=== PATIENT | female | born 1955 | race Caucasian/White ===

== ENCOUNTER → 2024-04-01 10:00 | Outpatient (REF) | payer MEDICARE, OTHER, SELFPAY | LOC: RAD 10:00 | PROVIDERS: ATTENDING PHYSICIAN Optometrist; FAMILY PHYSICIAN Family Medicine | DX: G45.3 Amaurosis fugax (principal) | CPT/HCPCS: 93880 ==

== ENCOUNTER → 2024-04-02 11:26 | Outpatient (REF) | payer MEDICARE, OTHER, SELFPAY ==
[2024-04-02 12:12] LABS: % Basophils 0.8 % (0-2); % Eosinophils 7.4 % (0-6); % Immature Granulocytes 0.3 % (0-0.5); % Lymphocytes 26.2 % (20.5-51.1); % Neutrophils 57.3 % (42.2-75.2); Absolute Basophils 0.1 10^3/uL (0-0.2); Absolute Eosinophils 0.5 10^3/uL (0-0.7); Absolute Lymphocytes 1.9 10^3/uL (1.2-3.4); Absolute Monocytes 0.6 10^3/uL (0.1-0.6); Absolute Neutrophils 4.1 10^3/uL (1.4-6.5); Hematocrit 41.4 % (37.0-47.0); Hemoglobin 13.6 g/dL (12.0-16.0); Mean Corp Hgb Conc. 32.9 g/dL (33.0-37.0); Mean Corpuscular Hgb 28.4 pg (27.0-31.0); Mean Corpuscular Volume 86.4 fL (81.0-99.0); Mean Platelet Volume 9.6 fL (7.4-10.4); Nucleated Red Blood Cells % 0 %; Platelet Count 254 10^3/uL (130-400); Red Blood Cell Count 4.79 10^6/uL (4.20-5.40); Red Cell Dist. Width 14.1 % (11.5-14.5); White Blood Cell Count 7.2 10^3/uL (4.8-10.8)
[2024-04-02 12:50] LABS: Erythrocyte Sed Rate 22 mm/hour (0-20)
[2024-04-02 13:19] LABS: ALT (SGPT) 19 U/L (0-35); AST (SGOT) 25 U/L (14-36); Albumin 4.1 g/dl (3.5-5.0); Alkaline Phosphatase 156 U/L (38-126); Blood Urea Nitrogen 18 mg/dl (7-17); Calcium 9.3 mg/dl (8.4-10.2); Carbon Dioxide 29 mmol/L (22-30); Chloride 104 mmol/L (98-107); Glucose 88 mg/dl (70-99); HDL Cholesterol 95 mg/dl; LDL Cholesterol, Calculated 126 mg/dl; Potassium 4.6 mmol/L (3.5-5.1); Sodium 139 mmol/L (135-145); Total Bilirubin 0.7 mg/dl (0.2-1.3); Total Cholesterol 237 mg/dl (50-199); Total Protein 6.8 g/dl (6.3-8.2); Triglyceride 84 mg/dl (10-149); Very Low Density Lipoprotein 16 mg/dl (0-30); eGFR > 60.00
[2024-04-02 13:31] LABS: Vitamin D, 25-OH*** 26.3 ng/mL (30-80)
[2024-04-02 13:45] LABS: TSH Reflex To Free T4 1.67 uIU/ml (0.47-4.68)
== END ==
LOC: REG 11:26
PROVIDERS: ATTENDING PHYSICIAN Family Medicine
DX: E03.9 Hypothyroidism, unspecified (principal); E55.9 Vitamin D deficiency, unspecified; K80.50 Calculus of bile duct without cholangitis or cholecystitis without obstruction; Z13.1 Encounter for screening for diabetes mellitus; Z13.6 Encounter for screening for cardiovascular disorders; R53.83 Other fatigue; I65.21 Occlusion and stenosis of right carotid artery; H53.9 Unspecified visual disturbance
CPT/HCPCS: 36415; 80053; 80061; 82306; 84443; 85025; 85652

== ENCOUNTER → 2024-04-03 09:07 | Outpatient (REF) | payer MEDICARE, OTHER, SELFPAY | LOC: HWRAD 09:07 | PROVIDERS: ATTENDING PHYSICIAN Surgery Vascular Surgery; FAMILY PHYSICIAN Family Medicine | DX: I65.21 Occlusion and stenosis of right carotid artery (principal) | CPT/HCPCS: 70496; 70498; Q9967 ==

== ENCOUNTER 2024-04-14 08:56 | Inpatient (IN) | payer MEDICARE, OTHER, SELFPAY ==
[2024-04-08 09:38] VITALS: BMI 44.9
[2024-04-08 10:20] LABS: % Basophils 0.7 % (0-2); % Eosinophils 6.8 % (0-6); % Immature Granulocytes 0.3 % (0-0.5); % Lymphocytes 24.5 % (20.5-51.1); % Monocytes 7.7 % (1.7-9.3); Absolute Basophils 0.1 10^3/uL (0-0.2); Absolute Eosinophils 0.5 10^3/uL (0-0.7); Absolute Lymphocytes 1.8 10^3/uL (1.2-3.4); Absolute Monocytes 0.6 10^3/uL (0.1-0.6); Absolute Neutrophils 4.3 10^3/uL (1.4-6.5); Hemoglobin 14.4 g/dL (12.0-16.0); Mean Corp Hgb Conc. 33.5 g/dL (33.0-37.0); Mean Corpuscular Hgb 29.2 pg (27.0-31.0); Mean Corpuscular Volume 87.2 fL (81.0-99.0); Mean Platelet Volume 10.3 fL (7.4-10.4); Nucleated Red Blood Cells % 0 %; Platelet Count 243 10^3/uL (130-400); Red Blood Cell Count 4.93 10^6/uL (4.20-5.40); White Blood Cell Count 7.2 10^3/uL (4.8-10.8)
[2024-04-08 10:34] LABS: INR 1.01; PT 13.1 Sec (11.4-14.6)
[2024-04-08 10:35] LABS: APTT 33.7 Sec (23.4-35.0); Blood Urea Nitrogen 17 mg/dl (7-17); Calcium 9.4 mg/dl (8.4-10.2); Carbon Dioxide 25 mmol/L (22-30); Chloride 106 mmol/L (98-107); Estimated Creatinine Clearance 95 ml/min; Glucose 108 mg/dl (70-99); Sodium 140 mmol/L (135-145); eGFR > 60.00
[2024-04-14] VITALS (14 sets, daily range): BP systolic 90–129; BP diastolic 48–74; BMI 44.7
[2024-04-14] MEDS: BACTROBAN NASAL 1 GRAM NASAL (09:27)
[2024-04-14] MEDS: PERIDEX 0.12% ORAL RINSE 15 ML PO (09:27)
[2024-04-14] MEDS: NSS 500 IV ×2 (09:27→21:02)
--- NOTE | 2024-04-14 09:33 | W.SUR.PREOP ---
Pre-Operative Surgical Note
-
I have examined this patient prior to the performance of the scheduled procedure.
The patient's condition is unchanged from the time of the current History and
Physical and the patient is able to undergo the scheduled procedure.
--- NOTE | 2024-04-14 12:45 | CON.INTV ---
Consultation
Consultation Request
Date/Time Consultation Requested: 04/14/2024-1 PM
Date/Time Consultation Performed: 04/14/2024- PM
Requesting Provider: Dr. Bruno
Performing Provider: Dr. Hanks
Reason for Consultation: Postoperative critical care management
Medical History
-
Chief Complaint: Symptomatic right carotid stenosis
History of Present Illness:
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 Postoperatively patient had
complained of a headache, CT head negative, no complaints of shortness of breath, chest pain, chest tightness, productive cough, abdominal pain, nausea, leg swelling or weakness. She is unsure whether she snores, she does not sleep well, wakes up
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
Past Medical History
Past Medical History: None (Asthma. Whooping cough. Tonsillectomy. Left hip arthroplasty 2020. Bile duct obstruction. Upper back sebaceous cyst excision.)
Social History
Tobacco: Non-smoker
Drug: None
Living: With Family
Occupational Exposures: No known asbestos exposure
Environmental Exposures: No known tuberculosis exposure
Family History
Family History: Other (Father-dementia, CAD. Mother-ovarian cancer and asthma)
Allergies / Home Medications
Allergies
Allergy/AdvReac Type Severity Reaction Status Date / Time
No Known Allergies Allergy Verified 04/14/24 09:28
Home Medications
�Medication �Instructions �Recorded �Confirmed �Last Taken �Type
Acetaminophen With Codeine #3 1 tab PO .PRN PRN BACK pain 07/12/23 04/07/24 05/25/23 History
Nasacort 1 puff intranasal PRN PRN 07/12/23 07/12/23 04/11/24 18:00 History
congestion
Vitamin D3 2,000 units PO DAILY 07/12/23 04/14/24 04/13/24 16:00 History
lidocaine HCl 4 % topical liquid 1 ea topical PRN PRN back pain 07/12/23 04/07/24 07/10/23 History
roll-on (Aspercreme (lidocaine
HCl))
orphenadrine citrate 100 mg 100 mg PO BID BACK PAIN 07/12/23 04/14/24 04/24/23 History
tablet,extended release
aspirin 81 mg tablet,delayed 81 mg PO DAILY 04/07/24 04/14/24 04/14/24 08:00 History
release
clopidogrel 75 mg tablet 75 mg PO DAILY 04/07/24 04/14/24 04/14/24 08:00 History
rosuvastatin 10 mg tablet 10 mg PO HS 04/07/24 04/14/24 04/13/24 22:00 History
Liver Support With Milk Thistl 1 cap PO DAILY 04/14/24 04/14/24 Unknown History
albuterol sulfate 90 mcg/actuation 2 puff inhalation 6XD PRN ASTHMA 04/14/24 04/14/24 Unknown History
aerosol inhaler
budesonide-formoterol HFA 160 2 puff inhalation DAILY 04/14/24 04/14/24 04/14/24 08:00 History
mcg-4.5 mcg/actuation aerosol
inhaler (Symbicort)
Review of Systems
-
Unable to Obtain full review of systems at this time due to: Other (Per HPI)
Vitals / Labs / Diagnostic Testing
Vital Signs
Temp Pulse Resp BP Pulse Ox
97.1 F 76 14 129/70 97
04/14/24 09:09 04/14/24 09:30 04/14/24 09:30 04/14/24 09:29 04/14/24 09:30
Lab Data
04/08/24 10:01
04/08/24 10:01
Diagnostic Testing:
Physical Exam
-
Exam:
Well-nourished and well-developed in no apparent distress
HEENT-atraumatic, normocephalic
Neck-supple, no JVD, no bruit
Heart-regular rate and rhythm-no murmurs, rubs or gallops
Chest-clear to auscultation, no wheezes, crackles
Back-no tenderness
Abdomen-soft, nontender, nondistended, no hepatosplenomegaly
Extremities-no cyanosis, clubbing, edema and good peripheral pulses
Integument-intact, no rashes, lesions or ecchymosis
Neurology-alert and oriented, nonfocal motor and sensory exam
Assessment
-
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
Symptomatic right carotid artery stenosis
Status post right CEA-Dr. Bruno-04/14/2024
Postoperative headache on the right side-CT head negative, felt to be reperfusion headache-will monitor closely
Mild hyperglycemia
Conditions present prior to admission:
Asthma.
Whooping cough.
Tonsillectomy. Left hip arthroplasty 2020. Bile duct obstruction. Upper back sebaceous cyst excision.
Plan
Postoperative surgical intensive care unit monitoring
Supplemental oxygen as needed
Incentive spirometry
Aspiration precautions
Neuro and vascular checks per protocol
Monitor head/neck ache
CT head postoperatively-no acute intracranial abnormalities
Vascular surgery following-correspondence and operative notes reviewed
Monitor blood sugar
Insulin supplementation as needed
DVT prophylaxis
Early nutrition
Early mobilization
Critical care statement: A total of 46 minutes of critical care time was provided for this patient today. This includes management of unstable vital signs, evaluation of the patient at bedside, reviewing the patient's pertinent medical records
including radiographs, microbiology, laboratory evaluations, and discussion with primary team, consultants, pharmacy, nutrition, physical therapy, case management, charge nurse, critical care nursing, and respiratory therapy.
Diagnostic data:
Chest x-ray 04/08/2024-NAD
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
Data Reviewed
-
EKG: Report reviewed by me
Radiology: Report reviewed by me
CT Scan: Report reviewed by me
Medical Tests (Nuc Med, Echo etc): Report reviewed by me
Labs: Labs reviewed by me
Old Records: Reviewed
Critical Care Time (in minutes): 46
--- NOTE | 2024-04-14 12:59 | W.SUR.POST ---
Surgical Immediate Post Op
Note
Pre Op Diagnosis: Carotid stenosis
Post Op Diagnosis: Same
Procedure Performed: Right CEA with bovine pericardial patch angioplasty and EEG monitoring
Primary Surgeon: Damion
Assist: Heladio CHILDERS
Anesthesia: General
Estimated Blood Loss: 25 cc
Fluids: See anesthesia flowsheet
Drains/Shunts: None
Specimens/Cultures: Right carotid plaque
Doppler/Duplex/Angio (Y/N): Y
Complications: None
Operative Findings: Woke from anesthesia moving all extremities
[2024-04-14 13:49] LABS: Hemoglobin 13.4 g/dL (12.0-16.0); Mean Corp Hgb Conc. 34.4 g/dL (33.0-37.0); Mean Corpuscular Hgb 29.3 pg (27.0-31.0); Mean Corpuscular Volume 85.2 fL (81.0-99.0); Mean Platelet Volume 10.2 fL (7.4-10.4); Platelet Count 217 10^3/uL (130-400); Red Blood Cell Count 4.58 10^6/uL (4.20-5.40); Red Cell Dist. Width 13.9 % (11.5-14.5); White Blood Cell Count 10.4 10^3/uL (4.8-10.8)
[2024-04-14 13:57] LABS: Blood Urea Nitrogen 18 mg/dl (7-17); Calcium 8.6 mg/dl (8.4-10.2); Carbon Dioxide 23 mmol/L (22-30); Chloride 108 mmol/L (98-107); Estimated Creatinine Clearance 110 ml/min; Glucose 134 mg/dl (70-99); Sodium 139 mmol/L (135-145); eGFR > 60.00
[2024-04-14 13:59] LABS: INR 1.09; PT 13.9 Sec (11.4-14.6)
[2024-04-14 14:00] LABS: APTT 37.8 Sec (23.4-35.0)
--- NOTE | 2024-04-14 14:31 | PTCARENOTE ---
Received patient to room 3362, report given from PACU nurse Mauro. 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 still has pain in jaw, teeth and neck. Patient did come
directly from CT scan. Patient is on 4L nasal cannula. Patient is sinus rhythm on monitor. Left radial Radha intact, transduced and zero'ed to atmopheric pressure. currently 130/67. Right neck skin glue incision, intact, ecchymotic, ice pack
applied. Patient is due to void. slightly nauseated. Will review orders, call [facility] within reach.
[2024-04-14] MEDS: ZOFRAN 4 MG IV (14:45)
[2024-04-14] MEDS: MORPHINE SULFATE 2 MG IV (14:45)
[2024-04-14] MEDS: NSS 1000 IV (14:48)
--- NOTE | 2024-04-14 14:51 | SUR.PHASEI ---
1310: Pt. was endosing to RN 7-8 out of 10 right sided neck, eye and head pain (headache). Pt. neurologically intact despite symptoms with sensation and strength equal throughout. with facial symmetry. Pt. AAOx3 and answering all questions
appropriately. Pt. covering Radha Mathews was contacted and made aware of pt. current condition. Nicardipine gtt. that was running at 7.5 was stopped due to SBP ranging 100-110.
1340: MD Rodriguez at bedside assessing patient. request to head straight to CT scan for the head due to change in patient condition.
1410: Pt. packed up and was safely transported to CT scan and was taken directly to ICU room, patient arrived to room safely with no events.
1425: RN to RN report given after patient was settled in room
[2024-04-14 15:30] LABS: Troponin I < 0.012 ng/ml
[2024-04-14] MEDS: HEPARIN 5000 UNITS SC (15:36)
[2024-04-14] MEDS: DILAUDID 0.25 MG IV ×2 (15:36→18:35)
--- NOTE | 2024-04-14 15:44 | OR.RPT ---
Operative Report
Operative Report
PROCEDURE DATE: 04/14/2024
Preoperative diagnosis: Symptomatic critical right carotid artery stenosis.
Postoperative diagnosis: Same
Procedure: Right carotid endarterectomy with bovine pericardial patch angioplasty and intraoperative EEG/SSEP monitoring.
Surgeon: Damion
Manager Sales: LISA Leija required for all aspects of procedure including assistance with traction/countertraction, following of suture line, assistance with closure.
Complications: None
Anesthesia: General
Indications for procedure:
Symptomatic (amaurosis) right carotid artery critical stenosis. Risk/benefits/alternatives of revascularization were all fully discussed. Patient understood all wish to proceed.
Description of procedure:
Patient was identified brought to the operating room placed on the table in supine position. After the adequate administration of anesthesia and perioperative antibiotics she was prepped and draped in the standard surgical fashion. A standard
preoperative timeout was undertaken and everybody was in agreement the plan. A standard longitudinal incision was made in the right neck that was carried through the skin subcutaneous tissue. Using the electrocautery dissection was carried through
the platysma muscle layer and then alongside the anterior medial border of the sternocleidomastoid muscle. Then using a combination of sharp dissection with the Metzenbaum scissors and electrocautery I dissected along the anterior medial border of
the internal jugular vein. The common facial vein branch was ligated between silk ties and then divided. I then deepened my retraction. The common carotid artery was identified and carefully dissected away from the surrounding structures take
great care to avoid any injury to the structures. A vessel loop was passed around it which was double looped, but not yet tightened. Note the vagus nerve was clearly visualized and protected from harm's way. I then continued my dissection up the
common carotid artery to the bulb staying only on the anterior surface of the carotid artery. Then I carried the dissection up to the internal carotid artery and then to the distal internal carotid artery. I identified where it was soft, which was
rather far cephalad. Therefore, I did extend my incision slightly more cephalad, and there was an additional jugular vein branch that was ligated between silk ties and then divided to allow better exposure. Once I had better exposure, I carefully
circumferentially dissected the internal carotid artery with minimal mobilization and passed a vessel loop around it. Note the hypoglossal nerve was visualized and preserved from harm's way, it was noted to be further cephalad. The patient was
given an appropriate dose of heparin 11,000 units. Next I dissected the anterior surface of the external carotid artery and superior thyroid branches. These were then carefully circumferentially dissected with minimal mobilization and vessel
loops passed around these which were double looped but not yet tightened. After 3 minutes of heparin circulation time and confirmation of optimization of the blood pressure with my anesthesiology colleagues, I clamped the distal internal carotid
artery where it was soft. There was no immediate EEG or SSEP changes. After 1 minute of test clamp time there was no changes noted. Therefore at this point, the vessel loops on the external carotid artery and superior thyroid branches were
tightened and the common carotid artery was clamped where it was soft proximally. An arteriotomy was made on the common carotid artery with an 11 blade and extended using a Aldana scissor. I extended the arteriotomy onto the mid to distal internal
carotid artery. A heavy plaque of mixed consistency with significant calcification/hardness eccentrically and slightly softer internal aspect was noted, and was noted to cause significant diameter reduction. A [place] was then used to
endarterectomized the plaque. An endarterectomy plane was created, and the plaque was then endarterectomized. Distally I feathered the plaque out to a nice clean endpoint in the distal internal carotid artery. Next I endarterectomized the intima
back to normal intima in the common carotid artery, and the intima was cut flush there. I then grasped the plaque and everted plaque out of the origin of the external carotid artery. The plaque was then sent off for specimen. The origin of the
external carotid artery was carefully visualized and any fine debris were removed with fine forceps. Proximal and distal endpoints were then carefully inspected. Any fine debris was removed with fine forceps, and the intima was noted to be nicely
adherent proximally and distally. Next, any fine debris were removed throughout the endarterectomy bed with fine forceps. Interrupted 7-0 Prolene tacking sutures were placed to tack the distal endpoint. I then flushed heparinized saline. I was
very satisfied. Then, I used a bovine pericardial patch to sew a patch angioplasty with a running 6-0 Prolene suture. Prior to completing and tying down my suture line, I backbled sequentially each branch and reclamped each branch prior to
unclamping the next branch. I then irrigated with heparinized saline. Then I completed and tied down my suture line. We then restored flow in the common carotid and external carotid arteries. Finally, we released flow in the internal carotid
artery. There was excellent pulsatile flow in all 3 vessels. There was an excellent Doppler signal in the internal carotid artery distal to the patch with a good normal low resistance Doppler signal. There was a good Doppler signal in the
external carotid artery as well. A few 6-0 Prolene [id number] sutures were placed along any bleeding points along the suture line. Hemostasis along the suture line was noted to take a fair amount of time due to needle hole bleeding.
Protamine was given to reverse the heparin. Meticulous hemostasis was completely achieved. We then irrigated and confirmed full hemostasis. We then closed in layers with 2-0 Vicryl layer to reapproximate the sternocleidomastoid muscle, followed
by 3-0 Vicryl platysma muscle running layer, followed by 4 Monocryl subcuticular stitch. Dermabond was applied. The patient tolerated procedure well. She awoke moving all extremities to command with tongue in the midline.
--- NOTE | 2024-04-14 15:50 | W.PN.UPDATE ---
Update Note
Progress Note Update
Postoperatively in recovery room patient expressed to have right jaw and tooth pain as well as right base of the head headache. Blood pressure noted to be well-controlled in the low 100 systolic. No focal neurologic findings on exam. Pupils equal
bilaterally. Stat CT head scan completed which was negative for any intracranial acute findings, no bleed noted. Will obtain EKG and send troponins to rule out atypical cardiac symptom etiology.
[2024-04-14] MEDS: TYLENOL 650 MG PO (16:38)
--- NOTE | 2024-04-14 18:17 | PTCARENOTE ---
Bladder scanned patient for 607 for no urine output. patient adamantly refused straight cath, will have patient attempt to void but then explained the risks and will straight cath.
[2024-04-14] MEDS: NEO-SYNEPHRINE 250 IV (20:25)
--- NOTE | 2024-04-14 21:04 | PTCARENOTE ---
Addendum entered by Darius Hurley RN 04/14/24 21:56:
Pt. not fluid responsive, SBP still decreased despite bolus, persistent refractory bradycardia, new orders as below per Dr. Parra
- D/C Phenylephrine
- Start Norepinephrine
- Same SBP goals greater than 95.
Original Note:
Assumed care of pt. approx 1900.
Post CEA arterial line in place. Correlating with NIBP, titration metrics based on arterial line.
Hypotensive, phenylephrine started. Vascular surgery notified new orders placed see below, per Dr. Parra.
- 500 cc bolus 0.9.
- Titrate off crys due to reflex bradycardia, new SBP parameter greater than 95.
- If crys demands still needed after bolus will switch to norepi.
Neurologically intact, GCS 15, Pupils =/R 3mm brisk. Equal ext. strength throughout, no decreased sensations noted.
Sinus bradycardia, w/o ectopy. Hypotensive currently on 40 phenylephrine. Temporal pulses strong, no previous echo, or hx of chf.
2L spo2 96 percent.
Urine OP 40-60ml/hr.
[2024-04-14] MEDS: LEVOPHED 250 IV (21:55)
[2024-04-14] MEDS: CRESTOR 10 MG PO (22:17)
--- NOTE | 2024-04-14 23:52 | PTCARENOTE ---
No change in neurological assessment, remains fully intact.
SBP goals maintained on 2mcg norepi, remains sinus bradycardic in 50s.
incision site remains C/D/I, no evidence of developing hematoma.
[2024-04-15] VITALS (59 sets, daily range): BP systolic 81–139; BP diastolic 39–71; BMI 45.7
[2024-04-15] MEDS: HEPARIN 5000 UNITS SC ×4 (01:28→23:43)
--- NOTE | 2024-04-15 02:40 | PTCARENOTE ---
Arterial line waveform dampened not correlating w/ cuffs any longer. Attempting to troubleshoot, using NIBP metrics for vasopressor titrations.
[2024-04-15] MEDS: DILAUDID 0.25 MG IV (04:04)
[2024-04-15] MEDS: NSS 1000 IV (04:04)
--- NOTE | 2024-04-15 04:09 | PTCARENOTE ---
pain at surgical site, prn Dilaudid given.
Arterial line still not correlating with NIBP, dampened waveform persists, icu rodriguez aware, titrating off of NIBP metrics.
No change in neurological assessment remains fully intact.
[2024-04-15 04:10] LABS: Hemoglobin 12.5 g/dL (12.0-16.0); Mean Corp Hgb Conc. 33.8 g/dL (33.0-37.0); Mean Corpuscular Hgb 29.1 pg (27.0-31.0); Mean Platelet Volume 10.2 fL (7.4-10.4); Platelet Count 248 10^3/uL (130-400); Red Cell Dist. Width 13.8 % (11.5-14.5); White Blood Cell Count 9.5 10^3/uL (4.8-10.8)
[2024-04-15 04:33] LABS: Blood Urea Nitrogen 14 mg/dl (7-17); Calcium 8.4 mg/dl (8.4-10.2); Carbon Dioxide 25 mmol/L (22-30); Chloride 107 mmol/L (98-107); Estimated Creatinine Clearance 110 ml/min; Glucose 142 mg/dl (70-99); Potassium 4.1 mmol/L (3.5-5.1); Sodium 138 mmol/L (135-145); eGFR > 60.00
[2024-04-15 04:59] LABS: INR 1.08
[2024-04-15 05:00] LABS: APTT 32.7 Sec (23.4-35.0)
--- NOTE | 2024-04-15 06:24 | PTCARENOTE ---
TT to vascular, Arterial line not correlating, dampened wave form, small hematoma forming at site.
Dr. mahmood via TT approved removal of arterial line.
--- NOTE | 2024-04-15 07:25 | W.PN.INTV ---
Today's Communication / Plan
Recommendations
Wean pressors
Wean oxygen
Increase activity
Neurovascular checks
If able to be weaned off pressors then could be transferred out of ICU
Assessment
-
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
Symptomatic right carotid artery stenosis
Status post right CEA-Dr. Bruno-04/14/2024
Postoperative headache on the right side-CT head negative, felt to be reperfusion headache-will monitor closely
Mild hyperglycemia
Conditions present prior to admission:
Asthma.
Whooping cough.
Tonsillectomy. Left hip arthroplasty 2020. Bile duct obstruction. Upper back sebaceous cyst excision.
Plan
Remains critically ill on pressors to maintain MAP
Hemodynamically and neurovascularly intact
Wean supplemental oxygen
Incentive spirometry encourage
Aspiration precautions
Monitor hemoglobin
Transfuse if needed
Monitor blood sugars
Insulin supplementation if needed
Neuro and vascular checks per protocol also continue
Wean norepinephrine
Vascular surgery closely-correspondence reviewed
Discontinue arterial line
Goal systolic blood pressure greater than 90
Increase activity
DVT prophylaxis-on subcu heparin
Nutrition
Increase activity/physical therapy
If able to be weaned off norepinephrine then patient could be transferred out of ICU-call pulmonary if respiratory issues arise
Critical care statement: A total of 35 minutes of critical care time was provided for this patient today. This includes management of unstable vital signs, evaluation of the patient at bedside, reviewing the patient's pertinent medical records
including radiographs, pressor management, microbiology, laboratory evaluations, and discussion with primary team, consultants, pharmacy, nutrition, physical therapy, case management, charge nurse, critical care nursing, and respiratory therapy.
Diagnostic data:
Chest x-ray 04/08/2024-NAD
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
Subjective Dataa
Subjective Data
Date of Service:
Date of Service: April 15, 2024
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
Subjective:
Headache improved, no neck pain, incisional site pain, no shortness of breath, chest pain or abdominal pain, or new weakness
Review of Systems
General: Other (Per HPI)
Objective Data
Data Reviewed
Vital Signs / I&O / Oxygen:
Vital Signs
Temp Pulse Resp BP Pulse Ox
98 F 59 10 91/52 95
04/15/24 06:00 04/15/24 06:00 04/15/24 06:00 04/15/24 06:00 04/15/24 06:00
Intake and Output
04/14/24 04/15/24 04/16/24
06:59 06:59 06:59
Intake Total 2056.0 / 2056.0
Output Total 720 / 720
Balance 1336.0 / 1336.0
SaO2 95
Nasal Cannula flow liters per 4
minute
Physical Exam
General: Respiratory Distress and Comfortable
HEENT: Normocephalic, Anicteric and Moist Mucous Membranes
Cardiovascular: Regular Rhythm
Respiratory: Wheeze (n), Crackles (n), Rhonchi (n), Non-Labored Respirations, Accessory Resp Muscle Use (n) and Stridor (n)
GI: Soft, Non Distended and Non Tender
Neurology: Awake, Alert and No Motor Deficits
Skin: Warm, Good Color, Cyanosis (n), Jaundice (n) and Rash (n)
Labs/Micro/Reports
Lab Data
04/15/24 03:50
04/15/24 03:50
Laboratory Results
04/14/24 04/15/24
13:38 03:50
PT 13.9 14.0
INR 1.09 1.08
APTT 37.8 H 32.7
[2024-04-15] MEDS: ASPIR LOW (ENTERIC COATED) 81 MG PO (08:07)
[2024-04-15] MEDS: SYMBICORT 160/4.5 MCG INHALER 2 PUFF INH (08:19)
--- NOTE | 2024-04-15 09:05 | W.PN.VS ---
Addendum entered and electronically signed by Ariel Parra III, MD 04/15/24 10:12:
This patient was seen and examined with LISETH Ghosh. I agree with the history and physical exam as well as the assessment and plan. I have the following additions:
Grossly nonfocal and comfortable this morning
Neck incision clean dry, soft
Wean off Levophed
Out of bed
Keep in ICU
Antiplatelet
Signed:
Ariel Parra III, MD
[facility] Vascular Surgery
[phone] (zydd)
Original Note:
Today's Communication / Plan
-
Seen and assess with Dr Parra
Assessment/Plan
-
POD 1 R CEA
Plan:
-DC lisa, wean levo as tolerated SBP>90
-Change pain medication to PO
-OOB/ambulate
-Diet
-Possible DC later today, will reassess
Subjective Data
-
Date of Service: April 15, 2024
Pt seen at bedside this am with Dr Parra. Pt states her eye pain has lessened this am and her jaw does not bother her anymore. She slept well overnight. No other events
Objective Data
-
Vital Signs
Temp Pulse Resp BP Pulse Ox
97.8 F 62 18 91/52 93
04/15/24 07:46 04/15/24 08:19 04/15/24 08:19 04/15/24 06:00 04/15/24 08:19
Intake and Output
04/14/24 04/15/24 04/16/24
06:59 06:59 06:59
Intake Total 2056.0 / 2151.0 186.3 / 186.3
Output Total 720 / 720
Balance 1336.0 / 1431.0 186.3 / 186.3
Intake:
Oral fluids 20 / 20
IV fluids (Total) 1536.0 / 1631.0 186.3 / 186.3
NSS 220 / 220
Norepinephrine 90.0 / 105.0 26.3 / 26.3
Nss 1,000 ml @ 80 mls/hr IV . 1200 / 1280 160 / 160
[id number] [facility] Rx#:[id number]
phenylephrine
IV piggybacks 500 / 500
Output:
Urine, Voided 720 / 720
Other:
Number of approximated MODERATE 1
amounts of urine
Number of approximated LARGE 2
amounts of urine
Lab Results
04/15/24 03:50
04/15/24 03:50
Calcium 8.4 mg/dl (8.4-10.2) 04/15/24 03:50
Physical Exam
-
AAOX3
no tachypnea
No tachycardia
neck site c/d/i, soft, no drainage noted
tongue midline
moves all extremities
[2024-04-15] MEDS: DILAUDID 2 MG PO (09:07)
[2024-04-15] MEDS: TYLENOL 650 MG PO ×3 (10:35→23:43)
[2024-04-15] MEDS: ZOFRAN 4 MG IV (11:51)
--- NOTE | 2024-04-15 12:17 | CM ---
CM following re: discharge planning.
Reviewed pt's chart, met with pt.
Pt is a 68 year old female, admitted with primary dx of L CEA. pt expressed her concerning regarding abdominal discomfort and she thinks it from anesthesia. Pt stated she is aware of her discharge today and she stated her friend will transport home.
IMM reviewed, placed on chart, pt has a copy.
Pt reports she lives with brother in a 2 [address], 3 steps to enter, has no children. 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 No DME, VN or SNF history.
PCP: Randy Hernandez
Pharmacy: [facility].
D/C plan: home with no needs. Friend to transport at discharge.
--- NOTE | 2024-04-15 12:59 | PTCARENOTE ---
Pt OOB in chair. Levophed weaned off at 1020. Pt reported nausea after transfer. PRN Zofran given. All other assessments unchanged.
--- NOTE | 2024-04-15 20:00 | PTCARENOTE ---
strip roller, pt aaox3, assist x 1 to bathroom, SR HR 60s, LAC IV WNL, R neck incision with skin glue-ecchymotic, intermittent pain per pt. POC discussed, call abdoulaye w/pt.
[2024-04-15] MEDS: CRESTOR 10 MG PO (21:37)
[2024-04-16] VITALS (20 sets, daily range): BP systolic 85–111; BP diastolic 46–57; BMI 45.6
--- NOTE | 2024-04-16 | PTCARENOTE ---
pt assisted to bathroom, prn tylenol given for R neck incision/Back pain, no further changes in assessment.
[2024-04-16] MEDS: LEVOPHED 250 IV (04:42)
[2024-04-16] MEDS: TYLENOL 650 MG PO (04:52)
[2024-04-16 05:39] LABS: Hematocrit 37.9 % (37.0-47.0); Hemoglobin 12.5 g/dL (12.0-16.0); Mean Corpuscular Hgb 29.5 pg (27.0-31.0); Mean Corpuscular Volume 89.4 fL (81.0-99.0); Mean Platelet Volume 10.5 fL (7.4-10.4); Platelet Count 219 10^3/uL (130-400); Red Blood Cell Count 4.24 10^6/uL (4.20-5.40); Red Cell Dist. Width 14.2 % (11.5-14.5); White Blood Cell Count 8.5 10^3/uL (4.8-10.8)
[2024-04-16 05:54] LABS: Blood Urea Nitrogen 14 mg/dl (7-17); Calcium 8.6 mg/dl (8.4-10.2); Carbon Dioxide 29 mmol/L (22-30); Chloride 107 mmol/L (98-107); Estimated Creatinine Clearance 112 ml/min; Glucose 103 mg/dl (70-99); Sodium 139 mmol/L (135-145); eGFR > 60.00
--- NOTE | 2024-04-16 07:27 | W.PN.INTV ---
Today's Communication / Plan
Recommendations
Wean oxygen
deline
Increase activity
Wean norepinephrine
If able to be successfully weaned off norepinephrine then transfer out of ICU-call pulmonary if respiratory issues arise
Assessment
-
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
Symptomatic right carotid artery stenosis
Status post right CEA-Dr. Bruno-04/14/2024
Postoperative headache on the right side-CT head negative, felt to be reperfusion headache-will monitor closely
Mild hyperglycemia
Conditions present prior to admission:
Asthma.
Whooping cough.
Tonsillectomy. Left hip arthroplasty 2020. Bile duct obstruction. Upper back sebaceous cyst excision.
Plan
Continues to be critically ill on pressors to maintain MAP
Hemodynamically and neurovascularly intact
Continue attempts at weaning FiO2
Incentive spirometry encourage
Aspiration precautions
Monitor hemoglobin
Transfuse if needed
Monitor blood sugars
Insulin supplementation if needed
Neuro and vascular checks per protocol also continue
Wean norepinephrine as tolerated
Vascular surgery closely-correspondence reviewed
Discontinue arterial line
Goal systolic blood pressure greater than 90
Increase activity
DVT prophylaxis-on subcu heparin
Nutrition
Increase activity/physical therapy
Continue attempts at weaning off norepinephrine-if successful then patient could be transferred out of ICU-call pulmonary if respiratory issues arise
Critical care statement: A total of 34 minutes of critical care time was provided for this patient today. This includes management of unstable vital signs, evaluation of the patient at bedside, reviewing the patient's pertinent medical records
including radiographs, pressor management, microbiology, laboratory evaluations, and discussion with primary team, consultants, pharmacy, nutrition, physical therapy, case management, charge nurse, critical care nursing, and respiratory therapy.
Diagnostic data:
Chest x-ray 04/08/2024-NAD
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
Subjective Dataa
Subjective Data
Date of Service:
Date of Service: April 16, 2024
Chief Complaint: Jigmaker Follow Up and Pulmonary Follow Up
Subjective:
Feels better, less headache, neck pain, no chest pain or shortness of breath and no abdominal pain, blood pressure still marginal
Review of Systems
General: Other (Per HPI)
Objective Data
Data Reviewed
Vital Signs / I&O / Oxygen:
Vital Signs
Temp Pulse Resp BP Pulse Ox
98 F 58 13 85/50 91
04/16/24 07:07 04/16/24 06:04 04/16/24 06:04 04/16/24 06:04 04/16/24 06:04
Intake and Output
04/15/24 04/16/24 04/17/24
06:59 06:59 06:59
Intake Total 2056.0 / 2151.0 743.8 / 743.8
Output Total 720 / 720
Balance 1336.0 / 1431.0 743.8 / 743.8
SaO2 91
Nasal Cannula flow liters per 4
minute
Physical Exam
General: Respiratory Distress and Comfortable
HEENT: Normocephalic, Anicteric and Moist Mucous Membranes
Cardiovascular: Regular Rhythm
Respiratory: Wheeze (n), Crackles (n), Rhonchi (n), Non-Labored Respirations, Accessory Resp Muscle Use (n) and Stridor (n)
GI: Soft, Non Distended and Non Tender
Neurology: Awake, Alert and No Motor Deficits
Skin: Warm, Good Color, Cyanosis (n), Jaundice (n) and Rash (n)
Labs/Micro/Reports
Lab Data
04/16/24 05:00
04/16/24 05:00
[2024-04-16] MEDS: SYMBICORT 160/4.5 MCG INHALER 2 PUFF INH (07:29)
--- NOTE | 2024-04-16 08:00 | W.PN.VS ---
Addendum entered and electronically signed by Gregor Bruon MD 04/16/24 08:19:
Seen and examined with LISA Sandoval. Agree with findings as noted below. Patient without new complaints. Right face/eye pain improved significantly, just mild now. Right neck incision site sore. Otherwise no new complaints. Right neck incision
clean dry and intact no hematoma. Neurologically no focal deficits. Moves all extremities well. Plan/as discussed and noted below.
Original Note:
Today's Communication / Plan
-
Patient seen and examined at bedside with Dr. Gregor Bruno, below plan reviewed with attending.
Assessment/Plan
-
POD 2 R CEA
Plan:
-Continue as needed pain medication
-OOB/ambulate
-Discharge later today
Subjective Data
-
Date of Service: April 16, 2024
Patient seen and examined at bedside, reports continued improvement in pain at right neck surgical site. Denies nausea, vomiting, fever, chills, headache, dysphagia, dysarthria, and vision changes. Patient denies dizziness, lightheadedness,
difficulty with ambulation.
Objective Data
-
Vital Signs
Temp Pulse Resp BP Pulse Ox
98 F 56 12 85/50 93
04/16/24 07:07 04/16/24 07:31 04/16/24 07:31 04/16/24 06:04 04/16/24 07:31
Intake and Output
04/15/24 04/16/24 04/17/24
06:59 06:59 06:59
Intake Total 2056.0 / 2151.0 743.8 / 743.8
Output Total 720 / 720
Balance 1336.0 / 1431.0 743.8 / 743.8
Intake:
Oral fluids 20 / 20 500 / 500
IV fluids (Total) 1536.0 / 1631.0 243.8 / 243.8
NSS 220 / 220
Norepinephrine 90.0 / 105.0 83.8 / 83.8
Nss 1,000 ml @ 80 mls/hr IV . 1200 / 1280 160 / 160
[id number] [id number] Rx#:[id number]
phenylephrine
IV piggybacks 500 / 500
Output:
Urine, Voided 720 / 720
Other:
Number of approximated MODERATE 1 1
amounts of urine
Number of approximated LARGE 2 1
amounts of urine
Lab Results
04/16/24 05:00
04/16/24 05:00
Calcium 8.6 mg/dl (8.4-10.2) 04/16/24 05:00
Physical Exam
-
AAOX3
no tachypnea
No tachycardia
neck site c/d/i, soft, no drainage noted
tongue midline, face symmetrical
moves all extremities
[2024-04-16] MEDS: HEPARIN 5000 UNITS SC (08:35)
[2024-04-16] MEDS: ASPIR LOW (ENTERIC COATED) 81 MG PO (08:35)
--- NOTE | 2024-04-16 08:54 | W.DS.TRANS ---
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
-
Discharge Instructions:
Discharge Diagnosis/Procedures Right carotid endarterectomy with bovine
pericardial patch angioplasty and intraoperative
EEG/SSEP monitoring
Diet As tolerated
Activity No strenuous activity
Driving Restrictions Not until seen by your Dr
Bathing Restrictions OK to Shower
Instructions:
Stand-Alone Forms: DC Instr - Vascular OR
Changes to Home Medications: Yes
Discharge Medications:
DC Medications w/original date entered in [employer]
Acetaminophen With Codeine #3 1 tab PO Q6HPRN PRN BACK pain 07/12/23
Nasacort 1 puff intranasal PRN PRN congestion 07/12/23
Vitamin D3 2,000 units PO DAILY Supplement 07/12/23
lidocaine HCl 4 % topical liquid roll-on (Aspercreme (lidocaine HCl)) 1 ea topical PRN PRN back pain 07/12/23
orphenadrine citrate 100 mg tablet,extended release 100 mg PO BID BACK PAIN 07/12/23
aspirin 81 mg tablet,delayed release 81 mg PO DAILY Blood Clot Prevention/Tx 04/07/24
rosuvastatin 10 mg tablet 10 mg PO HS High Cholesterol 04/07/24
Liver Support With Milk Thistl 1 cap PO DAILY Supplement 04/14/24
albuterol sulfate 90 mcg/actuation aerosol inhaler 2 puff inhalation Q4HPRN PRN ASTHMA 04/14/24
budesonide-formoterol HFA 160 mcg-4.5 mcg/actuation aerosol inhaler (Symbicort) 2 puff inhalation DAILY Lung/Breathing Issues 04/14/24
Home Medication Changes
Stopped:
clopidogrel 75 mg tablet 75 mg PO DAILY Blood Clot Prevention/Tx 04/07/24, completed TIa
Pending Results: No
--- NOTE | 2024-04-16 10:14 | CM ---
CM following re: discharge planning.
Reviewed pt's chart, met with pt.
Discharge order noted. Pt is aware, expressed her agreement with discharge and pt stated her friend will transport home. IMM reviewed, placed on chart, pt has a copy.
No after care VN services indicated.
D/C plan: home no needs. Friend to transport.
--- NOTE | 2024-04-16 11:29 | PTCARENOTE ---
Reviewed discharge instructions with pt and 'family friend'. IV and tele box d/c'd. Pt's friend went to run errand then coming back while pt gets dressed.
--- NOTE | 2024-04-17 14:55 | W.DCSUMMARY ---
Discharge Summary
Discharge Data
Date of Admission: 04/14/24
Date of Discharge: 04/16/24
-
Pending Results: No
Hospital Course
Attending: Damion
Consultants: Pulmonary medicine
Allergies: NKDA
Procedure with date: 04/14/24: Right carotid endarterectomy with bovine pericardial patch angioplasty and intraoperative EEG/SSEP monitoring.
History of present illness: The patient is an 68 -year-old female with multiple medical conditions including: carotid stenosis, asthma, left hip arthroplasty, and bile duct obstruction. Patient presented on 04/14/24 for scheduled procedure with .
Damion. Patient presented at baseline health with no reports of recent illness or trauma.
Hospital Course: Briefly, the patient underwent scheduled CEA without complications, and recovered in PACU. Following recovery phase one and two patient was transferred to intensive care unit per protocol for continued hemodynamic monitoring.
Inspector Conveyor Line consulted to aid in medical management from a critical care perspective. On arrival to ICU after PACU patient complained of eye pain, headache and jaw pain. CT head negative, tropinin negative, EKG unchanged. Pain medication gave
moderate relief. POD #1 (04/15/24) Patient neurologically intact, face symmetrical, and tolerating PO diet. Surgical neck site clean, dry, and intact with suture line well approximated and soft. No evidence of hematoma. Headache resolved. Arterial
line and IV fluids discontinued. Neck site with some discomfort. POD #2 (04/16/24) Patient able to ambulate without difficulty or incident. Patient stable for discharge to home.
Prescriptions and follow up appointment are included in the DC summary order entry clerk note. All instructions were given to the patient in both written and verbal form and the patient expressed understanding.
Discharge Plan
-
Patient Disposition: Home (Routine Discharge)
Discharge Diagnosis/Procedures: Right carotid endarterectomy with bovine pericardial patch angioplasty and intraoperative EEG/SSEP monitoring
Condition: Good
Diet: As tolerated
Activity: No strenuous activity
Driving Restrictions: Not until seen by your Dr
Bathing Restrictions: OK to Shower
Activity Restrictions/Additional Instructions:
If you experience severe constant headache, weakness to an arm or leg, change in vision, trouble speaking or any stroke-like symptom, call 911 immediately
If you experience swelling, increased bruising, drainage from neck site, or fever, please call the office
Stand Alone Forms: DC Instr - Vascular OR
Referrals:
Randy Mi Jr., DO [Family Provider] -
Mallory York PA-C [Specified Professional Personl] - 04/29/24 1:30 pm
Prescriptions:
Continued
Acetaminophen With Codeine #3
1 tab PO Q6HPRN PRN (Reason: BACK pain)
orphenadrine citrate 100 mg Tablet Extended Release
100 mg PO BID
lidocaine HCl [Aspercreme (lidocaine HCl)] 4 % Liquid Roll-On
1 ea topical PRN PRN (Reason: back pain)
Nasacort
1 puff intranasal PRN PRN (Reason: congestion)
Vitamin D3
2,000 units PO DAILY
aspirin 81 mg Tablet,Delayed Release (Dr/Ec)
81 mg PO DAILY
rosuvastatin 10 mg Tablet
10 mg PO HS
albuterol sulfate 90 mcg/actuation Hfa Aerosol Inhaler
2 puff INHALATION Q4HPRN PRN (Reason: ASTHMA)
Liver Support With Milk Thistl
1 cap PO DAILY
budesonide-formoterol [Symbicort] 160-4.5 mcg/actuation Hfa Aerosol Inhaler
2 puff INHALATION DAILY
Discontinued
clopidogrel 75 mg Tablet
75 mg PO DAILY
Discharge Orders:
Discharge Patient (As Directed); Ordered 04/16/24
Ordered By: Mallorie Sandoval
Discharge Date and Time
Discharge Date/Time: 04/16/24 12:15
Print Language: BENGALI
== END 2024-04-16 12:15 | disposition home or self-care (01) | DRG 39 ==
LOC: ICU 08:56
PROVIDERS: Nurse Practitioner; Nurse Practitioner Acute Care; ADMITTING PHYSICIAN Surgery Vascular Surgery; CONSULT PHYSICIAN Internal Medicine Critical Care Medicine; FAMILY PHYSICIAN Family Medicine
PROC: 03UK0KZ Supplement Right Internal Carotid Artery with Nonautologous Tissue Substitute, Open Approach (ICD-10-PCS; 2024-04-14)
PROC: 03CK0ZZ Extirpation of Matter from Right Internal Carotid Artery, Open Approach (ICD-10-PCS; 2024-04-14)
DX: I65.21 Occlusion and stenosis of right carotid artery (principal); J45.909 Unspecified asthma, uncomplicated
CPT/HCPCS: 88304; 88311; 35301; 36415; 70450; 71046; 80048; 84484; 85025; 85027; 85610; 85730; 86850; 86900; 86901; 87070; 93005; 94640; 95938; 95941; 95955

== ENCOUNTER → 2024-06-05 10:15 | Outpatient (REF) | payer MEDICARE, OTHER, SELFPAY | LOC: RAD 10:15 | PROVIDERS: ATTENDING PHYSICIAN Physician Assistant; FAMILY PHYSICIAN Family Medicine; REFERRING PHYSICIAN Surgery Vascular Surgery | DX: I65.21 Occlusion and stenosis of right carotid artery (principal) | CPT/HCPCS: 93880 ==

== ENCOUNTER 2024-08-30 13:03 | Emergency (ER) | payer MEDICARE, OTHER, SELFPAY ==
[2024-08-30 13:10] VITALS: BP 128/73
[2024-08-30 14:07] LABS: % Basophils 0.3 % (0-2); % Eosinophils 0.2 % (0-6); % Immature Granulocytes 0.3 % (0-0.5); % Lymphocytes 5.7 % (20.5-51.1); % Monocytes 5.2 % (1.7-9.3); % Neutrophils 88.3 % (42.2-75.2); Absolute Lymphocytes 0.3 10^3/uL (1.2-3.4); Absolute Monocytes 0.3 10^3/uL (0.1-0.6); Absolute Neutrophils 5.2 10^3/uL (1.4-6.5); Hematocrit 40.9 % (37.0-47.0); Hemoglobin 13.8 g/dL (12.0-16.0); Mean Corp Hgb Conc. 33.7 g/dL (33.0-37.0); Mean Corpuscular Hgb 29.9 pg (27.0-31.0); Mean Corpuscular Volume 88.5 fL (81.0-99.0); Mean Platelet Volume 9.9 fL (7.4-10.4); Nucleated Red Blood Cells % 0 %; Platelet Count 195 10^3/uL (130-400); Red Blood Cell Count 4.62 10^6/uL (4.20-5.40); Red Cell Dist. Width 13.5 % (11.5-14.5); White Blood Cell Count 5.9 10^3/uL (4.8-10.8)
[2024-08-30 14:11] LABS: ALT (SGPT) 26 U/L (0-35); AST (SGOT) 30 U/L (14-36); Albumin 3.4 g/dl (3.5-5.0); Alkaline Phosphatase 144 U/L (38-126); Blood Urea Nitrogen 19 mg/dl (7-17); Calcium 8.1 mg/dl (8.4-10.2); Carbon Dioxide 25 mmol/L (22-30); Chloride 105 mmol/L (98-107); Glucose 121 mg/dl (70-99); Lipase 15 U/L (23-300); Potassium 3.8 mmol/L (3.5-5.1); Sodium 139 mmol/L (135-145); Total Bilirubin 0.8 mg/dl (0.2-1.3); Total Protein 6.1 g/dl (6.3-8.2); eGFR > 60.00
--- NOTE | 2024-08-30 14:26 | ED.GENMED ---
History of Present Illness
General
Chief Complaint: Abdominal Symptoms
Time Seen by Provider: 08/30/24 14:26
History of Present Illness
History of Present Illness:
TIME OF INITIAL ENCOUNTER: 2:30 PM
HPI: Patient came in from home by ambulance due to vomiting and diarrhea. The patient was given Zofran prior to arrival. She was concerned because she had the appearance which she thought was coffee-ground type of appearance to the emesis and
'black' appearance. She was also concerned because she had a biliary duct blockage in the past without symptoms. She has not had any melena. Overall she is feeling improved after Zofran and fluids were started by EMS.
EXAM:
GENERAL: Well appearing in no distress
HEENT: Moist oral mucosa
CARDIOVASCULAR: No murmurs, normal heart rate, regular rhythm, No chest wall tenderness
PULMONARY: No respiratory distress, breath sounds are clear and equal
ABDOMEN: Soft with no peritoneal signs, no tenderness, elevated BMI, heme-negative loose brown stool
NEUROLOGIC: Excellent strength all extremities, no coordination deficits
PSYCHIATRIC: Appropriate mental status, normal insight and judgement
EXTREMITIES: Nontender, no edema, moves all extremities equally
SKIN: No rash, no lesions
NUMBER AND COMPLEXITY OF PROBLEMS ADDRESSED AT THE ENCOUNTER
� Chronic conditions affecting care: Had choledocholithiasis in the past, asthma
� Acute Exacerbation and/or Progression of Chronic Illness: This is an acute problem
� Differential Diagnosis includes: Foodborne illness, viral gastroenteritis, doubt appendicitis given lack of any abdominal pain, normal white count, and no abdominal tenderness
AMOUNT AND/OR COMPLEXITY OF DATA TO BE REVIEWED AND ANALYZED
� I performed an independent evaluation of and my interpretation is:
EKG:
CT:
X-rays:
Laboratory Studies: White count normal, hemoglobin 13.8, BUN is 19, creatinine 0.5, transaminases are normal, total bili is 0.8
Other:
� Review of other/old records: I reviewed records, the patient was found to have choledocholithiasis by MRCP in June 2023
� Clinical information was obtained by an independent historian: None needed
� Prescriptions/Medications Considered but not given:
� Further testing considered but not performed: Considered CT imaging of the abdomen pelvis however the patient has no abdominal tenderness nor pain
RISK OF COMPLICATIONS AND/OR MORBIDITY OR MORTALITY OF PATIENT MANAGEMENT
� Social determinants of health affecting care:
� Discussion with other providers:
� Escalation of care including admission/observation vs risk of discharge considered: I doubt that the patient has any biliary ductal obstruction as her alkaline phosphatase is much less than it was back in May 2023. The
patient already is feeling improved with IV fluids and Zofran. Given the question of report of coffee-ground emesis, I did give a one-time dose of Protonix 80 mg IV however she does have heme-negative loose brown stool.
ANY OTHER UPDATES:
3:15 PM: I reassessed patient. Patient continues to feel well.
Past History
Past History
ED Past Medical History: Other (Osteoarthritis)
Social History
Tobacco: Non-smoker
Alcohol: None
Drug: None
Phy Exam
Physical Exam
Physical Exam:
See HPI
Course
Orders/Labs/Results
Orders:
Orders
08/30/24 13:51
Complete Blood Count/With Diff Urgent
Comprehensive Metabolic Panel Urgent
Lipase Urgent
08/30/24 14:41
Pantoprazole [Protonix IV] 80 mg IV NOW STA
Abnormal Lab Results
08/30/24
13:51
Absolute Lymphs (auto) 0.3 L 10^3/uL
(1.2-3.4)
Neutrophils % 88.3 H %
(42.2-75.2)
Lymphocytes % 5.7 L %
(20.5-51.1)
BUN 19 H mg/dl
(7-17)
Creatinine 0.5 L mg/dL
(0.6-1.0)
Glucose 121 H mg/dl
(70-99)
Calcium 8.1 L mg/dl
(8.4-10.2)
Alkaline Phosphatase 144 H U/L
(38-126)
Total Protein 6.1 L g/dl
(6.3-8.2)
Albumin 3.4 L g/dl
(3.5-5.0)
Lipase 15 L U/L
(23-300)
08/30/24 13:51
08/30/24 13:51
Vital Signs
Initial and Last Documented VS:
Initial Vital Signs
Temp Pulse Resp BP Pulse Ox
36.6 C 76 16 128/73 98
08/30/24 13:10 08/30/24 13:10 08/30/24 13:10 08/30/24 13:10 08/30/24 13:10
Last Documented Vital Signs
Temp Pulse Resp BP Pulse Ox
36.6 C 81 14 109/63 95
08/30/24 13:10 08/30/24 15:15 08/30/24 15:15 08/30/24 15:00 08/30/24 15:15
*Critical Care Note
Total Time (30-74mins, 75-104mins- exclusive of procedures): Not Applicable
ED Attending Note
-
Portions of this chart may have been created with voice recognition software.� Occasional wrong word or��sound alike� substitutions may have occurred due to the inherent limitations of voice recognition software.
Discharge Plan
Departure
Patient Disposition: Home (Routine Discharge)
Date of Disposition: 08/30/24
Time of Disposition: 15:23
Patient with high blood pressure during this ER visit?: Yes
Discharge Problem:
Vomiting and diarrhea
Instructions: Diarrhea in teens and adults, Nausea and Vomiting, Adult (DC)
Prescriptions:
New
ondansetron HCl 4 mg tablet
4 mg PO Q8H PRN (Reason: nausea and vomiting) Qty: 14 0RF
No Action
Acetaminophen With Codeine #3
1 tab PO Q6HPRN PRN (Reason: BACK pain)
orphenadrine citrate 100 mg Tablet Extended Release
100 mg PO BID
lidocaine HCl [Aspercreme (lidocaine HCl)] 4 % Liquid Roll-On
1 ea topical PRN PRN (Reason: back pain)
Nasacort
1 puff intranasal PRN PRN (Reason: congestion)
Vitamin D3
2,000 units PO DAILY
aspirin 81 mg Tablet,Delayed Release (Dr/Ec)
81 mg PO DAILY
rosuvastatin 10 mg Tablet
10 mg PO HS
albuterol sulfate 90 mcg/actuation Hfa Aerosol Inhaler
2 puff INHALATION Q4HPRN PRN (Reason: ASTHMA)
Liver Support With Milk Thistl
1 cap PO DAILY
budesonide-formoterol [Symbicort] 160-4.5 mcg/actuation Hfa Aerosol Inhaler
2 puff INHALATION DAILY
Referrals:
Randy Mi Jr., DO [Family Provider] -
Activity Restrictions/Additional Instructions:
Your white blood cell count and hemoglobin levels are normal. Your liver function tests and pancreas numbers are unremarkable. Renal function is normal. When I checked her bottom, there is no blood noted. Consider taking a 2-week course of
[id number] omeprazole to help with stomach acid. I sent a prescription for nausea medicine to your pharmacy.
Interventions
Interventions:
*Risk Screen - Suicide Last Done: 08/30/24 13:12
*General Assessment Last Done: 08/30/24 14:36
*Neglect/Abuse Screening Last Done: 08/30/24 13:12
*ED COVID-19 Vaccine History Last Done: 08/30/24 14:36
EH-Ukes[facility]-[id number] Assessment Last Done: 08/30/24 15:00
Discharge Date and Time
Print Language: NEPALI
[2024-08-30 14:29] VITALS: BP 157/91
[2024-08-30] MEDS: PROTONIX IV 80 MG IV (14:49)
[2024-08-30 15:00] VITALS: BP 109/63
== END 2024-08-30 15:45 | disposition home or self-care (01) ==
LOC: EMR 13:03
PROVIDERS: Emergency Medicine; EMERGENCY PHYSICIAN Emergency Medicine; FAMILY PHYSICIAN Family Medicine
DX: R11.2 Nausea with vomiting, unspecified (principal); R19.7 Diarrhea, unspecified
CPT/HCPCS: 96374; 99284; 80053; 83690; 85025

== ENCOUNTER → 2024-10-31 09:50 | Outpatient (REF) | payer MEDICARE, OTHER, SELFPAY ==
[2024-10-31 10:58] LABS: % Basophils 0.7 % (0-2); % Eosinophils 8.4 % (0-6); % Immature Granulocytes 0.4 % (0-0.5); % Lymphocytes 28.2 % (20.5-51.1); % Monocytes 6.7 % (1.7-9.3); % Neutrophils 55.6 % (42.2-75.2); Absolute Basophils 0.1 10^3/uL (0-0.2); Absolute Eosinophils 0.7 10^3/uL (0-0.7); Absolute Lymphocytes 2.3 10^3/uL (1.2-3.4); Absolute Monocytes 0.5 10^3/uL (0.1-0.6); Absolute Neutrophils 4.5 10^3/uL (1.4-6.5); Hematocrit 41.3 % (37.0-47.0); Hemoglobin 13.4 g/dL (12.0-16.0); Mean Corp Hgb Conc. 32.4 g/dL (33.0-37.0); Mean Corpuscular Hgb 29.2 pg (27.0-31.0); Mean Platelet Volume 10.2 fL (7.4-10.4); Nucleated Red Blood Cells % 0 %; Platelet Count 245 10^3/uL (130-400); Red Blood Cell Count 4.59 10^6/uL (4.20-5.40); Red Cell Dist. Width 14.3 % (11.5-14.5)
[2024-10-31 11:48] LABS: ALT (SGPT) 23 U/L (0-35); AST (SGOT) 28 U/L (14-36); Albumin 3.6 g/dl (3.5-5.0); Alkaline Phosphatase 155 U/L (38-126); Blood Urea Nitrogen 18 mg/dl (7-17); Calcium 9.1 mg/dl (8.4-10.2); Carbon Dioxide 33 mmol/L (22-30); Chloride 103 mmol/L (98-107); Glucose 93 mg/dl (70-99); HDL Cholesterol 91 mg/dl; LDL Cholesterol, Calculated 29 mg/dl; Potassium 4.5 mmol/L (3.5-5.1); Sodium 139 mmol/L (135-145); Total Bilirubin 0.5 mg/dl (0.2-1.3); Total Cholesterol 135 mg/dl (50-199); Total Protein 6.7 g/dl (6.3-8.2); Triglyceride 77 mg/dl (10-149); Very Low Density Lipoprotein 15 mg/dl (0-30); eGFR > 60.00
[2024-10-31 12:24] LABS: TSH Reflex To Free T4 3.57 uIU/ml (0.47-4.68)
== END ==
LOC: REG 09:50
PROVIDERS: ATTENDING PHYSICIAN Internal Medicine Cardiovascular Disease; FAMILY PHYSICIAN Family Medicine
DX: E03.9 Hypothyroidism, unspecified (principal); Z13.1 Encounter for screening for diabetes mellitus; I65.21 Occlusion and stenosis of right carotid artery; Z13.6 Encounter for screening for cardiovascular disorders; R53.83 Other fatigue
CPT/HCPCS: 36415; 80053; 80061; 84443; 85025

== ENCOUNTER → 2024-12-05 08:23 | Outpatient (REF) | payer MEDICARE, OTHER, SELFPAY | LOC: RAD 08:23 | PROVIDERS: ATTENDING PHYSICIAN Surgery Vascular Surgery; FAMILY PHYSICIAN Family Medicine | DX: I65.21 Occlusion and stenosis of right carotid artery (principal) | CPT/HCPCS: 93880 ==

== ENCOUNTER → 2025-04-29 09:29 | Outpatient (REF) | payer MEDICARE, OTHER, SELFPAY ==
[2025-04-29 10:30] LABS: Hematocrit 41.2 % (37.0-47.0); Hemoglobin 13.5 g/dL (12.0-16.0); Mean Corp Hgb Conc. 32.8 g/dL (33.0-37.0); Mean Corpuscular Volume 88.4 fL (81.0-99.0); Nucleated Red Blood Cells % 0 %; Platelet Count 229 10^3/uL (130-400); Red Cell Dist. Width 14.0 % (11.5-14.5)
[2025-04-29 10:55] LABS: Urine Character Cloudy (Clear)
[2025-04-29 10:57] LABS: ALT (SGPT) 19 U/L (0-35); AST (SGOT) 22 U/L (14-36); Albumin 4.1 g/dl (3.5-5.0); Alkaline Phosphatase 133 U/L (38-126); Blood Urea Nitrogen 16 mg/dl (7-17); Calcium 9.1 mg/dl (8.4-10.2); Carbon Dioxide 27 mmol/L (22-30); Chloride 107 mmol/L (98-107); Glucose 106 mg/dl (70-99); Potassium 4.2 mmol/L (3.5-5.1); Sodium 140 mmol/L (135-145); Total Protein 7.0 g/dl (6.3-8.2); eGFR > 60.00
== END ==
LOC: REG 09:29
PROVIDERS: ATTENDING PHYSICIAN Family Medicine
DX: R31.9 Hematuria, unspecified (principal); R30.0 Dysuria; Z13.29 Encounter for screening for other suspected endocrine disorder; Z79.899 Other long term (current) drug therapy
CPT/HCPCS: 36415; 80053; 81003; 81015; 84443; 85025; 87086

== ENCOUNTER → 2025-06-19 11:38 | Outpatient (REF) | payer MEDICARE, OTHER, SELFPAY | LOC: RAD 11:38 | PROVIDERS: ATTENDING PHYSICIAN Surgery Vascular Surgery; FAMILY PHYSICIAN Family Medicine | DX: I65.21 Occlusion and stenosis of right carotid artery (principal) | CPT/HCPCS: 93880 ==